=== PATIENT | female | born 1990 | race Caucasian/White ===

== ENCOUNTER 2025-02-12 10:17 | Emergency (ER) | payer MEDICAID ==
[~2025-02-12] VITALS: Ht 154.9 cm; Wt 59.3 kg
[~2025-02-12 10:17] MED LIST: LORA10TA7 PO
[2025-02-12 10:22] VITALS: BP 128/92; PULSE 85; RESP 18; O2SAT 100
[2025-02-12 11:00] LABS: STREP A SCREEN NEGATIVE (Neg)
[2025-02-12] MEDS ORDERED: DEC4T PO (12:36)
--- NOTE | 2025-02-12 12:37 | Physician Documentation ---
History of Present Illness ~ Chief Complaint: Sore Throat Stated Complaint: SORE THROAT Time Seen by MD: 11:24 Primary Medical Doctor: [facility] HPI 34-year-old healthy female presenting for 4 days of cough, nasal congestion and sore throat. Also reporting shortness of breath. Medication Reconciliation Allergies: Coded Allergies: Azithromycin (Verified Allergy, Mild, RASH, SOB, SWELLING TO LIPS, 07/16/10) Scheduled Loratadine (Loratadine), 1 TABLET PO DAILY Past Medical History Past Medical History: Allergic Rhinitis Past Surgical History: no surgical history Smoking Status: Current every day smoker Lives with: Family Lives In: Home Review of Systems Constitutional: Denies: fever Physical Exam Vital Signs: Temperature: 97.8, Source: Temporal, Heart Rate: 85, Respiratory Rate: 18, BP: 128/92, Pulse Oximetry: 100, Weight: 59.300 Oxygen Flow Rate: 0 Physical Exam Well-appearing female Voice raspy Moist mucous membranes no peritonsillar abscess no tonsillar exudate no trismus No lymphadenopathy Lungs clear to auscultation bilaterally breathing comfortably no wheezing rhonchi or rales or stridor controlling secretions Progress Progress Note I independently interpreted her strep test negative Results/Orders Results/Orders Orders - INDIRA SINGLETON MD Cult Throat + R/O Beta Strep (02/12/25 11:00) Completed Orders - INDIRA SINGLETON MD Strep A Rapid (02/12/25 10:26) Vital Signs 02/12/25 10:22 Temp 97.8 Pulse 85 Resp 18 B/P (MAP) 128/92 Pulse Ox 100 O2 Flow Rate 0 Laboratory Tests Test 02/12/25 10:25 Group A Streptococcus Rapid Negative Departure Disposition: HOME / SELF CARE / HOMELESS Impression: Primary Impression: Acute pharyngitis Qualified Codes: J02.9 - Acute pharyngitis, unspecified Additional Instructions: Your symptoms should improve rapidly with the steroid I prescribed you. You should also try gargling warm salt water as this can also rapidly improve your symptoms. If you have any progression of your symptoms please return to the emergency department Referrals: NO PRIMARY CARE PROVIDER (PCP) Prescriptions Dexamethasone* (Decadron*) 4 Mg Tablet 2 TAB PO DAILY for 3 Days, #6 TAB Prov: INDIRA SINGLETON MD 02/12/25 Signature Scribe Signature: No scribe Attestation: No scribe INDIRA SINGLETON MD February 12, 2025 12:37
[2025-02-12 12:56] VITALS: TEMP 97.8
== END 2025-02-12 12:57 | disposition home or self-care (01) ==
LOC: ER 10:19
DX: J02.9 Acute pharyngitis, unspecified (principal); F17.200 Nicotine dependence, unspecified, uncomplicated; Z88.1 Allergy status to other antibiotic agents; Z79.899 Other long term (current) drug therapy
CPT/HCPCS: 87081; 87880; 99283